=== PATIENT | female | born 1990 | race American Indian/Alaskan Native ===

== ENCOUNTER 2018-01-02 07:20 | Emergency (ER) | payer SELFPAY ==
[2018-01-02 07:28] VITALS: BP 139/79
--- NOTE | 2018-01-02 08:18 | Emergency Department Report ---
Abscess Boil HPI - HPI Chief Complaint: Extremity Injury, Upper Stated Complaint: FINGER SWOLLEN Time Seen by Provider: 01/02/18 07:48 Duration: >1 Week (2 weeks) Location: Upper Extremity (right third finger around nailbed) Severity: Severe (8/10 and throbbing in) History: Yes Pain (right third finger and nailbed 8/10), No Fever, No Purulent Drainage, No Numbness, No Foreign Body, No Previous History, No Insect Bite HPI: This is a 27-year-old female here report that she has swelling and redness around her right third finger at nailbed. Denies any injury. She states that she noted swelling 2 weeks ago and it is painful 8/10 and throbbing in an pain is not going away. Denies any history of similar incident. Tetanus vaccine is up-to-date. Denies any numbness certainly to extremities. Pain is worse with movement and touch and no alleviating factors Home Medications: Previous Rx's Medication Instructions Recorded Last Taken Type Ibuprofen [Motrin] 600 mg PO Q8H PRN #12 tablet 01/02/18 Unknown Rx cephALEXin [Keflex] 500 mg PO Q8HR 7 Days #21 cap 01/02/18 Unknown Rx Allergies/Adverse Reactions: Allergies Allergy/AdvReac Type Severity Reaction Status Date / Time No Known Allergies Allergy Verified 01/02/18 07:26 ED Review of Systems ROS: Stated complaint: FINGER SWOLLEN Other details as noted in HPI Constitutional: denies: chills, fever Eyes: denies: eye pain ENT: denies: ear pain, throat pain, congestion Respiratory: denies: cough, shortness of breath, SOB with exertion, SOB at rest , stridor, wheezing Cardiovascular: denies: chest pain, palpitations Gastrointestinal: denies: nausea, vomiting Genitourinary: denies: discharge Musculoskeletal: joint swelling, arthralgia. denies: back pain Skin: other (redness and swelling around nailbed right third finger). denies: rash, lesions Neurological: denies: numbness, paresthesias ED Past Medical Hx - Past Medical History Previous Medical History?: No - Surgical History Past Surgical History?: No - Family History Family history: hypertension - Social History Smoking Status: Never Smoker Substance Use Type: None - Medications Home Medications: Home Medications Medication Instructions Recorded Confirmed Last Taken Type Ibuprofen [Motrin] 600 mg PO Q8H PRN #12 tablet 01/02/18 Unknown Rx cephALEXin [Keflex] 500 mg PO Q8HR 7 Days #21 cap 01/02/18 Unknown Rx ED Abscess Boil Physical Exam - Exam General: Vital signs noted. No distress. Alert and acting appropriately. This is a 27-year-old female well-nourished well-developed in no acute distress. Front/Back of Body, Lg (Color): 1 - Right third finger at tuft and around nailbed with indurated and nonfluctuant area. No open into senna. No drainage noted. Tender to palpate. Nail intact to nailbed without any discoloration. Size: 1 cm Exam: Yes Tenderness (right third digit distally), Yes Surrounding Cellulites/ Erythema (mild erythema around nailbed), Yes Normal Circulation (No cce. + 2 pulses in all extremities, no neurovascular compromise except for right third digit with mild erythema, swelling and tenderness to palpate), No Fluctuance ( positive induration), No Lymphangitis, No Crepitation, No Heart Murmur (S1, S2 regular rate rhythm), No Normal Neurologic Exam (alert and oriented 3 and normal gait) I & D Note - I & D Note I & D Note: Incision and drainage procedure. Unable to do incision and drainage procedure due to non-fluctuance. Minimally duration. I discussed the patient to place affected area in warm water several times a day to facilitate drainage and soft minutes site. ED Course Vital Signs 01/02/18 07:27 Temperature 98.9 F Pulse Rate 74 Respiratory 18 Rate Blood Pressure 139/79 O2 Sat by Pulse 98 Oximetry - Reevaluation(s) Reevaluation #1: 01/02/18 08:29 Patient stable throughout ED course given Motrin 800 mg by mouth for pain. Critical care attestation.: If time is entered above; I have spent that time in minutes in the direct care of this critically ill patient, excluding procedure time. ED Medical Decision Making - Medical Decision Making This is a 27-year-old female here report that she has infection around her fingernail to her right third finger distally. She is here to be evaluated. She was seen and evaluated by myself and physical exam is normal except she has erythema, indurated, nonfluctuant area surrounding the right third finger distally. No nail involvement. Bilateral ulnar and radial pulses at 2+ and bounding. No neurovascular compromise. Patient reports pain with movement of her right third finger otherwise normal range of motion. I discussed the patient as she has paronychia and she will need to place affected area in warm water several times a day to facilitate soft name and drainage. Area is minimally indurated. Patient was undescended this is a suction and treatment plan and she was given prescription for Keflex and Motrin and to follow-up with her primary care in 2-3 days and if she does not have a primary care to follow- up at [facility]. I discussed this or if the area becomes worse to return to the emergency room. Her vital signs are stable she is afebrile and nontoxic in appearance. She is given Motrin 800 mg by mouth in emergency room for finger pain which relieved her pain. Discharged home in stable condition. ED Disposition Clinical Impression: Paronychia of right middle finger Disposition: DC-01 TO HOME OR SELFCARE Is pt being admited?: No Condition: Stable Instructions: Paronychia (ED) Additional Instructions: Please see discharge instruction in acute wound care Apply warm compresses to affected area 4 times a day to facilitate then and increased drainage Keep affected area clean and dry Motrin for pain and please take medication with food to prevent nausea or irritation to stomach lining Take Keflex antibiotic. Return to the emergency room if, he developed fever, chills, increased pain and drainage from site, nausea and vomited, increase in redness and/or weakness. Referrals: PRIMARY CARE [Primary Care Provider] - 2-3 Days [facility] [Outside] - 2-3 Days Forms: Work/School Release Form(ED)
[2018-01-02] MEDS ORDERED: MOTRIN PO ONE (08:30)
== END 2018-01-02 08:43 | disposition home or self-care (01) ==
LOC: ED 07:20
DX: L03.011 Cellulitis of right finger (principal); Z79.899 Other long term (current) drug therapy
CPT/HCPCS: 99282

== ENCOUNTER 2018-08-12 15:44 | Emergency (ER) | payer OTHER ==
--- NOTE | 2018-08-12 16:41 | Emergency Department Report ---
Blank Doc - Documentation Documentation: 28 y/o female work on [employer] c/o of swelling to finger around nail bed. painful dull throbbing
--- NOTE | 2018-08-12 20:10 | Emergency Department Report ---
Abscess Boil HPI - HPI Chief Complaint: Extremity Problem,Nontraumatic Stated Complaint: RT HAND/FINGER SWOLLEN PAINFUL Time Seen by Provider: 08/12/18 16:39 Duration: 1 Week Location: Upper Extremity (right third finger) Severity: Severe History: Yes Pain, No Fever, No Purulent Drainage, No Numbness, No Foreign Body, No Previous History, No Insect Bite HPI: This is a 28-year-old -[place] female who presents with swelling around right third finger for 1-1/2 weeks. Patient states she bumped her finger 2 days ago which increased swelling and pain around the medial nail. Patient is unsure of last tetanus vaccine. Patient denies numbness or tingling, drainage, or warmth to the area. Home Medications: Previous Rx's Medication Instructions Recorded Last Taken Type Ibuprofen [Motrin] 600 mg PO Q8H PRN #12 tablet 01/02/18 Unknown Rx cephALEXin [Keflex] 500 mg PO Q8HR 7 Days #21 cap 01/02/18 Unknown Rx traMADol [Ultram 50 MG tab] 50 mg PO Q6HR PRN #15 tablet 03/04/18 Unknown Rx Ibuprofen [Motrin 800 MG tab] 800 mg PO Q8HR PRN #15 tablet 08/12/18 Unknown Rx Sulfamethoxazole/Trimethoprim 1 each PO BID #20 tablet 08/12/18 Unknown Rx [Bactrim DS TAB] Allergies/Adverse Reactions: Allergies Allergy/AdvReac Type Severity Reaction Status Date / Time No Known Allergies Allergy Verified 08/12/18 16:00 ED Review of Systems ROS: Stated complaint: RT HAND/FINGER SWOLLEN PAINFUL Other details as noted in HPI Constitutional: denies: chills, fever Respiratory: denies: cough, shortness of breath, wheezing Cardiovascular: denies: chest pain, palpitations Gastrointestinal: denies: abdominal pain, nausea, diarrhea Skin: other (swelling of pain around her right third nailbed.). denies: rash, lesions Neurological: denies: headache, weakness, paresthesias Psychiatric: denies: anxiety, depression ED Past Medical Hx - Past Medical History Previous Medical History?: No - Surgical History Past Surgical History?: No - Social History Smoking Status: Never Smoker Substance Use Type: None - Medications Home Medications: Home Medications Medication Instructions Recorded Confirmed Last Taken Type Ibuprofen [Motrin] 600 mg PO Q8H PRN #12 tablet 01/02/18 Unknown Rx cephALEXin [Keflex] 500 mg PO Q8HR 7 Days #21 cap 01/02/18 Unknown Rx traMADol [Ultram 50 MG tab] 50 mg PO Q6HR PRN #15 tablet 03/04/18 Unknown Rx Ibuprofen [Motrin 800 MG tab] 800 mg PO Q8HR PRN #15 tablet 08/12/18 Unknown Rx Sulfamethoxazole/Trimethoprim 1 each PO BID #20 tablet 08/12/18 Unknown Rx [Bactrim DS TAB] ED Abscess Boil Physical Exam - Exam General: Vital signs noted. No distress. Alert and acting appropriately. Size: 1 cm (half centimeter abscess, to right third lateral nail bed, bluish green around nail folds) Exam: Yes Tenderness, Yes Fluctuance, Yes Surrounding Cellulites/Erythema, Yes Normal Neurologic Exam, Yes Normal Circulation, No Lymphangitis, No Crepitation, No Heart Murmur I & D Note - I & D Note I & D Note: The area was prepared and draped in the usual, sterile manner. The site was anesthetized with 2% lidocaine without epinephrine. A linear incision along the local skin lines was made and the purulent material expressed. The abcess was explored thoroughly and sequestered pockets were opened. Bleeding was minimal. Followup: The patient tolerated the procedure well without complications. Standard post-procedure care was explained and return precautions are given. ED Course Vital Signs 08/12/18 15:59 Temperature 97.8 F Pulse Rate 83 Respiratory 18 Rate Blood Pressure 132/79 O2 Sat by Pulse 99 Oximetry Critical care attestation.: If time is entered above; I have spent that time in minutes in the direct care of this critically ill patient, excluding procedure time. ED Medical Decision Making - Medical Decision Making This is a 28-year-old female that presents with a painful abscess to third right lateral nailbed. Physical assessment of paronychia. No acute signs of distress noted. I&D refer to note. Patient given Boostrix all in ER. Discussed plan to start bactrim DS and ibuprofen with patient. Educated patient on follow up plan to have wound reassessed in 2-3 days by primary care provider. Patient agrees to ED plan of care. Discharged home and follow up with PCP in 2-3 days. ED Disposition Clinical Impression: Paronychia of finger of right hand Disposition: DC-01 TO HOME OR SELFCARE Is pt being admited?: No Does the pt Need Aspirin: No Condition: Stable Instructions: Paronychia (ED) Additional Instructions: Follow-up with PCP to have wound reassessed in 3-5 days. Complete full round of bactrim DS antibiotic as prescribed. Return to ER if foul smelling discharge, swelling, or severe pain to wound. Prescriptions: Sulfamethoxazole/Trimethoprim [Bactrim DS TAB] 1 each PO BID #20 tablet Ibuprofen [Motrin 800 MG tab] 800 mg PO Q8HR PRN #15 tablet PRN Reason: Pain Referrals: [facility] [Outside] - 3-5 Days [facility] [Outside] - 3-5 Days [facility] [Outside] - 3-5 Days Forms: Work/School Release Form(ED) Time of Disposition: 21:45
[2018-08-12] MEDS ORDERED: XYLOCAINE 1% MPF 5 mL INFILTRATI ONE (20:40)
[2018-08-12] MEDS ORDERED: BOOSTRIX IM ONE (21:15)
[2018-08-12 21:18] VITALS: BP 142/88
== END 2018-08-12 21:55 | disposition home or self-care (01) ==
LOC: ED 15:44
DX: L03.011 Cellulitis of right finger (principal)
CPT/HCPCS: 90471; 90715

== ENCOUNTER 2019-01-10 17:38 | Emergency (ER) | payer SELFPAY ==
[2019-01-10 17:48] VITALS: BP 136/80
[2019-01-10] MEDS ORDERED: BENADRYL PO ONE (20:46)
[2019-01-10] MEDS ORDERED: IBUPROFEN PO ONE (20:46)
--- NOTE | 2019-01-10 21:03 | Emergency Department Report ---
ED General Adult HPI - General Chief complaint: Eye Problems Stated complaint: VISION BLURRY/COLD SYM Time Seen by Provider: 01/10/19 20:45 Source: patient Mode of arrival: Ambulatory Limitations: No Limitations - History of Present Illness Initial comments: Patient is a 28-year-old Af[place] female who presents for URI symptoms with irritation and burning redness history of seasonal allergies there's no fevers no chills no nausea no vomiting patient confirms head and sinus congestion clear postnasal drip and sore throat cough is nonproductive symptoms for the last 3 days Onset/Timin -: days(s) Location: head, eyes Severity scale (0 -10): 4 Quality: aching Consistency: constant Improves with: none Worsens with: other (acitivlty environmental exposure ) Associated Symptoms: cough, malaise Treatments Prior to Arrival: none - Related Data Previous Rx's Medication Instructions Recorded Last Taken Type Ibuprofen [Motrin] 600 mg PO Q8H PRN #12 tablet 01/02/18 Unknown Rx cephALEXin [Keflex] 500 mg PO Q8HR 7 Days #21 cap 01/02/18 Unknown Rx traMADol [Ultram 50 MG tab] 50 mg PO Q6HR PRN #15 tablet 03/04/18 Unknown Rx Ibuprofen [Motrin 800 MG tab] 800 mg PO Q8HR PRN #15 tablet 08/12/18 Unknown Rx Sulfamethoxazole/Trimethoprim 1 each PO BID #20 tablet 08/12/18 Unknown Rx [Bactrim DS TAB] Guaifenesin/Pseudoephedrne HCl 1 tab PO BID 10 Days #20 tab 01/10/19 Unknown Rx [Mucinex D ER 1,200-120 mg Tab] Ibuprofen [Motrin 800 MG tab] 800 mg PO Q8HR PRN #30 tablet 01/10/19 Unknown Rx Ketotifen Fumarate [Zaditor] 2 drops OP BID #5 ml 01/10/19 Unknown Rx Allergies Allergy/AdvReac Type Severity Reaction Status Date / Time No Known Allergies Allergy Verified 08/12/18 16:00 ED Review of Systems ROS: Stated complaint: VISION BLURRY/COLD SYM Other details as noted in HPI Constitutional: malaise. denies: chills, fever Eyes: eye pain (burning itching ) ENT: throat pain, congestion. denies: ear pain Respiratory: cough. denies: shortness of breath, wheezing Cardiovascular: denies: chest pain, palpitations Endocrine: no symptoms reported Gastrointestinal: denies: abdominal pain, nausea, vomiting, diarrhea Genitourinary: denies: urgency, dysuria, frequency, hematuria, discharge Musculoskeletal: denies: back pain, joint swelling, arthralgia, myalgia Skin: denies: rash, lesions Neurological: headache. denies: weakness, numbness, paresthesias, confusion, vertigo Psychiatric: denies: anxiety, depression Hematological/Lymphatic: denies: easy bleeding, easy bruising ED Past Medical Hx - Past Medical History Previous Medical History?: No - Surgical History Past Surgical History?: No - Social History Smoking Status: Never Smoker Substance Use Type: None - Medications Home Medications: Home Medications Medication Instructions Recorded Confirmed Last Taken Type Ibuprofen [Motrin] 600 mg PO Q8H PRN #12 tablet 01/02/18 Unknown Rx cephALEXin [Keflex] 500 mg PO Q8HR 7 Days #21 cap 01/02/18 Unknown Rx traMADol [Ultram 50 MG tab] 50 mg PO Q6HR PRN #15 tablet 03/04/18 Unknown Rx Ibuprofen [Motrin 800 MG tab] 800 mg PO Q8HR PRN #15 tablet 08/12/18 Unknown Rx Sulfamethoxazole/Trimethoprim 1 each PO BID #20 tablet 08/12/18 Unknown Rx [Bactrim DS TAB] Guaifenesin/Pseudoephedrne HCl 1 tab PO BID 10 Days #20 tab 01/10/19 Unknown Rx [Mucinex D ER 1,200-120 mg Tab] Ibuprofen [Motrin 800 MG tab] 800 mg PO Q8HR PRN #30 tablet 01/10/19 Unknown Rx Ketotifen Fumarate [Zaditor] 2 drops OP BID #5 ml 01/10/19 Unknown Rx ED Physical Exam - General Limitations: No Limitations General appearance: alert, in no apparent distress - Head Head exam: Present: atraumatic, normocephalic - Eye Eye exam: Present: normal appearance, PERRL, EOMI, conjunctival injection. Absent: periorbital swelling, other Pupils: Present: normal accommodation - ENT ENT exam: Present: mucous membranes moist - Expanded ENT Exam Expanded Ear exam: Present: normal external inspection, other TM/Canal exam: Erythema: Right TM, Left TM Mouth exam: Absent: trismus Throat exam: Positive: tonsillar erythema, other (uvula midline no stridor no swelling no exudate no wheezing ). Negative: tonsillomegaly, tonsillar exudate, R peritonsillar mass, L peritonsillar mass - Neck Neck exam: Present: normal inspection, full ROM. Absent: tenderness, lymphadenopathy - Respiratory Respiratory exam: Present: normal lung sounds bilaterally. Absent: respiratory distress, wheezes, stridor, chest wall tenderness - Cardiovascular Cardiovascular Exam: Present: regular rate, normal rhythm, normal heart sounds. Absent: systolic murmur, diastolic murmur, rubs, gallop - GI/Abdominal GI/Abdominal exam: Present: soft, normal bowel sounds - Rectal Rectal exam: Present: deferred - External exam: Present: other (exam deferred ) - Extremities Exam Extremities exam: Present: normal inspection, full ROM, normal capillary refill. Absent: tenderness, joint swelling, calf tenderness - Back Exam Back exam: Present: normal inspection, full ROM. Absent: tenderness, CVA tenderness (R), CVA tenderness (L), rash noted - Neurological Exam Neurological exam: Present: alert, oriented X3, CN II-XII intact, normal gait, reflexes normal. Absent: motor sensory deficit - Psychiatric Psychiatric exam: Present: normal affect, normal mood - Skin Skin exam: Present: warm, dry, intact, normal color. Absent: rash ED Course Vital Signs 01/10/19 17:46 Temperature 99.2 F Pulse Rate 85 Respiratory 16 Rate Blood Pressure 136/80 [Left] O2 Sat by Pulse 99 Oximetry ED Medical Decision Making - Medical Decision Making This is a URI with allergic conjunctivitis with treatment for same fascia well- hydrated follow-up with PCP in 2-3 days. Return to the ED should symptoms worsen patient verbalized agreement and understanding with same patient is currently alert oriented 3 and respiratory with no acute distress. Critical care attestation.: If time is entered above; I have spent that time in minutes in the direct care of this critically ill patient, excluding procedure time. ED Disposition Clinical Impression: URI (upper respiratory infection) Qualifiers: URI type: unspecified viral URI Qualified Code(s): J06.9 - Acute upper respiratory infection, unspecified Allergic conjunctivitis Qualifiers: Laterality: bilateral Qualified Code(s): H10.13 - Acute atopic conjunctivitis, bilateral Disposition: DC-01 TO HOME OR SELFCARE Is pt being admited?: No Does the pt Need Aspirin: No Condition: Stable Instructions: Upper Respiratory Infection (ED), Conjunctivitis (ED), Allergic Rhinitis (ED) Prescriptions: Ibuprofen [Motrin 800 MG tab] 800 mg PO Q8HR PRN #30 tablet PRN Reason: pain fever Guaifenesin/Pseudoephedrne HCl [Mucinex D ER 1,200-120 mg Tab] 1 tab PO BID 10 Days #20 tab Ketotifen Fumarate [Zaditor] 2 drops OP BID #5 ml Referrals: PRIMARY CARE, [Primary Care Provider] - 3-5 Days Forms: Work/School Release Form(ED) Time of Disposition: 21:09
== END 2019-01-10 21:36 | disposition home or self-care (01) ==
LOC: ED 17:38
DX: J06.9 Acute upper respiratory infection, unspecified (principal); H10.13 Acute atopic conjunctivitis, bilateral; Z79.899 Other long term (current) drug therapy
CPT/HCPCS: 82962